=== PATIENT | male | born 1965 | race African-American/Black ===

== ENCOUNTER 2017-04-01 20:43 | Emergency (ER) | payer MEDICAID ==
[2017-04-01] MEDS ORDERED: HYDROcodone/Acetaminophen 10/325 mg Tablet ONE (21:08)
[2017-04-01] MEDS ORDERED: Hydrochlorothiazide 25 MG TAB ONE (21:08)
[2017-04-01] MEDS ORDERED: Ibuprofen 200 MG TAB ONE (21:14)
[2017-04-01] MEDS ORDERED: Naproxen 500 MG TAB PO SCH (21:15)
[2017-04-01] MEDS ORDERED: Gabapentin 300 MG CAP PO SCH (21:15)
== END 2017-04-01 21:44 | disposition home or self-care (01) ==
LOC: BURERS 20:43
DX: Z76.0 Encounter for issue of repeat prescription (principal); E11.9 Type 2 diabetes mellitus without complications; I10 Essential (primary) hypertension; F41.9 Anxiety disorder, unspecified; Z79.899 Other long term (current) drug therapy
CPT/HCPCS: 36416; 99281

== ENCOUNTER 2017-04-06 09:21 | Emergency (ER) | payer MEDICAID ==
[2017-04-06] MEDS ORDERED: HYDROcodone/Acetaminophen 10/325 mg Tablet ONE (09:46)
== END 2017-04-06 10:46 | disposition home or self-care (01) ==
LOC: BURERS 09:21
DX: I10 Essential (primary) hypertension (principal); E11.9 Type 2 diabetes mellitus without complications; F41.9 Anxiety disorder, unspecified
CPT/HCPCS: 99283